=== PATIENT | male | born 1985 | race Caucasian/White ===

== ENCOUNTER 2020-04-12 15:22 | Observation (INO) | payer OTHER, SELFPAY ==
[2020-04-12] VITALS (10 sets, daily range): BP systolic 125–161; BP diastolic 65–103; PULSE 111–148; RESP 20–27; TEMP 37.7–39.2; O2SAT 98–100; BMI 38.7
--- NOTE | ~2020-04-12 | XR_ITS ---
XR chest 1V portable DATE: 04/12/2020 16:02 INDICATION: Cough, fever, shortness of breath TECHNIQUE: Portable upright AP chest on 04/12/2020 at 1602 hours COMPARISON: None FINDINGS: Normal heart size. No hilar or mediastinal enlargement. No pulmonary infiltrate or consolid ation, pleural effusion or pulmonary vascular congestion or pneumothorax. IMPRESSION: No active cardiopulmonary disease Reviewed, dictated and finalized at location A.
--- NOTE | 2020-04-12 15:32 | ED.FEVER ---
HPI - Fever General Chief Complaint: Fever Stated Complaint: from [facility]/fever/achey/sob Time Seen by Provider: 04/12/20 15:28 History of Present Illness HPI Narrative: Presents by private vehicle from urgent care for fever. He reports feeling bad since walking up this morning. He has cough, congestion, [place], and chills. This started while driving back from [place]. He stopped at urgent care and he was found to have a febrile to 102 and significantly tachycardic. He does report mild nausea. He has a h/o untreated htn and DM. He says that he has been taking social distancing measures, but unsure if he could have been exposed to anyone with COVID-19. Related Data Home Medications Medication Instructions Recorded Confirmed No Home Medications 04/12/20 04/12/20 Allergies Allergy/AdvReac Type Severity Reaction Status Date / Time No Known Allergies Allergy Verified 04/12/20 15:31 Review of Systems Review of Systems: All systems reviewed & are unremarkable except as noted in HPI and below Constitutional: Constitutional: Reports fever(s) ENT: Denies sore throat Cardiovascular: Cardiovascular: Denies chest pain Respiratory: Respiratory: Reports cough and Reports dyspnea Gastrointestinal: Gastrointestinal: Denies abdominal pain, Denies diarrhea, Reports nausea and Denies vomiting Genitourinary: Genitourinary: Denies hematuria and Denies dysuria Neurologic: Denies dizziness and Denies weakness PMFSH Past Medical History Medical History (Updated 04/12/20 @ 19:10 by Alexei Alonso MD) Diabetes mellitus HTN (hypertension) Social History Social History Gender identity (if verbalized by the patient): Male Exam Const: General: healthy appearing, no acute distress and alert Nutritional Appearance: well nourished Orientation/consciousness: patient oriented x3 HENMT: Head: normal to inspection Resp: Effort & Inspection: normal respiratory effort and tachypneic Auscultation: clear to auscultation bilaterally Cardio: Rate: tachycardic Rhythm: regular rhythm GI: GI Palp: Yes Soft to palpation and No Tenderness to palpation present (GI) Skin: General skin exam: normal color Neuro: General: patient oriented x3, moves all extremities and CN's II-XI intact bilaterally Speech: normal speech Extrem: General: normal to inspection Psych: Appearance: well kempt Mental Status: mental status grossly normal Affect: normal affect Attitude: cooperative Thought content: Yes Normal thought content present Course Vital Signs Vital signs: Vital Signs Temperature 39.1 C H 04/12/20 15:27 Pulse Rate 147 H 04/12/20 15:27 Respiratory Rate 22 H 04/12/20 15:27 Blood Pressure 157/99 H 04/12/20 15:27 Pulse Oximetry 100 04/12/20 15:27 Temperature 38.1 C H 04/12/20 18:49 Pulse Rate 124 H 04/12/20 18:49 Respiratory Rate 20 04/12/20 18:49 Blood Pressure 144/71 H 04/12/20 18:49 Pulse Oximetry 99 04/12/20 18:49 MDM - Fever MDM Narrative Medical decision making narrative: He does not appear that ill despite grossly normal vitals signs. Fever failed to respond to acetaminophen and still did not fully resolve with toradol. I have high suspicion for COVID-19. I will plan to admit for observation. Medical Records Attestation: I reviewed the patient's medical records. Lab Data Attestation: I reviewed the patient's lab results. Result diagrams: 04/12/20 15:53 04/12/20 15:53 Labs: Lab Results 04/12/20 04/12/20 04/12/20 Range/Units 15:48 15:53 15:53 WBC 16.0 H (4.5-10.0) K/mm3 RBC 5.38 (4.6-6.20) M/mm3 Hgb 16.6 (14.0-18.0) g/dL Hct 49.1 (42.0-52.0) % MCV 91.3 (80-100) fl MCH 30.9 (26-34) pg MCHC 33.8 (32-36) g/dl RDW 12.8 (11.5-14.5) % Plt Count 204 (150-375) k/mm3 MPV 11.4 H (7.4-10.4) fl Immature Gran % (Auto) 0.4 (0-0.5) % Neut % (Auto
[2020-04-12 15:50] LABS: Glucose Point of Care 123 (65-105)
[2020-04-12 16:03] LABS: Basophils Absolute Auto 0.1 K/mm3 (0.0-0.1); Basophils Percent Auto 0.4 % (0.2-1.2); Eosinophils Percent Auto 0.1 % (0-4.4); Hematocrit 49.1 % (42.0-52.0); Hemoglobin 16.6 g/dL (14.0-18.0); Immature Granulocyte Absolute 0.07 K/mm3 (0.00-0.031); Immature Granulocyte Percent A 0.4 % (0-0.5); Lymphocytes Absolute Auto 1.76 K/mm3 (0.9-3.2); Mean Corpuscular HGB Conc 33.8 g/dl (32-36); Mean Corpuscular Hemoglobin 30.9 pg (26-34); Mean Corpuscular Volume 91.3 fl (80-100); Mean Platelet Volume 11.4 fl (7.4-10.4); Monocytes Absolute Auto 1.1 K/mm3 (0.1-0.6); Neutrophils Percent Auto 81.1 % (45.5-73.1); Platelet Count Result 204 k/mm3 (150-375); Red Blood Count 5.38 M/mm3 (4.6-6.20); Red Cell Distribution Width 12.8 % (11.5-14.5)
[2020-04-12 16:14] LABS: Prothrombin Time 13.1 Seconds (11.1-14.7)
[2020-04-12 16:14] LABS: Lactic Acid Reflex 2.3 mmol/L (0.7-2.1)
[2020-04-12] MEDS: ACETAMINOPHEN 500 MG TABLET 1000 MG PO (16:14)
[2020-04-12] MEDS: SODIUM CHLORIDE 0.9% IV 1,000 ML 999 ML IV CONT ×2 (16:14→17:21)
[2020-04-12 16:15] LABS: Acetaminophen < 10 ug/mL (10-30)
[2020-04-12 16:16] LABS: Partial Thromboplastin Time 27.6 SECONDS (22.3-36.8)
[2020-04-12 16:18] LABS: Alanine Aminotransferase 72 U/L (4-50); Albumin Level 4.8 g/dL (3.5-5.1); Alkaline Phosphatase 81 U/L (38-126); Aspartate Amino Transferase 34 U/L (17-59); Bilirubin,Total 0.7 mg/dL (0.2-1.3); Blood Urea Nitrogen 10 mg/dL (9-20); CRP 2.6 mg/dL (<1.0); Calcium 9.1 mg/dL (8.4-10.2); Carbon Dioxide 28 mmol/L (22-30); Chloride 98 mmol/L (98-107); Estimated CRCL calculation 148 ml/min; Estimated Glomerular Filt Rate > 60; Glucose 130 mg/dL (75-110); Potassium 3.7 mmol/L (3.4-5.0); Sodium 136 mmol/L (137-145)
[2020-04-12 16:25] LABS: Add Urine Microscopic? NO; Appearance Urine Clear (Clear); Bilirubin Urine Negative (Negative); Blood Urine Negative (Negative); Color Urine Yellow (Yellow); Glucose Urine UA Negative (Negative); Ketones Urine Negative (Negative); Leukocyte Esterase Ur Negative LEU/UL (Negative); Nitrate Urine Negative (Negative); Protein Urine Negative (Negative); Specific Grav Ur 1.014 (1.001-1.035); Urobilinogen Urine Negative mg/dL (<2.0)
--- NOTE | 2020-04-12 17:12 | ECG_ITS ---
Measurements Intervals Hext Rate: 127 P: 44 GA: 170 QRS: -7 QRSD: 112 T: 20 QT: 294 QTc: 427 Interpretive Statements SINUS TACHYCARDIA INTRAVENTRICULAR CONDUCTION DELAY DELAYED PRECORDIAL R/S TRANSITION BORDERLINE T WAVE ABNORMALITY- INFERIOR LEADS ABNORMAL ECG Electronically Signed On 04-13-2020 7:01:00 CDT by Bryson Judge D.O.
[2020-04-12] MEDS: KETOROLAC 30 MG/ML VIAL (*BKC) IV PUSH (18:04)
[2020-04-12 19:01] LABS: Reflex Lactic Acid Yes or No Add Lactic
[2020-04-12 19:35] LABS: Lactic Acid 1.8 mmol/L (0.7-2.1)
--- NOTE | 2020-04-12 21:02 | ADMGEN ---
This patient, Allen Adams, was admitted to Intensive Care Unit-2. Patient/family oriented to hospital policies and general routines including ID bracelet, bed and alarms, visiting hours, pain management, procedures, bathroom and other care routines, personal items, smoking policy, room service/diet, and visiting hours. Valuables list has been completed. Information on how to activate the Rapid Response Team has been discussed. Patient/Family are encouraged to report perceived risks to care and to ask questions if they do not understand what they are told or what they should do.
--- NOTE | 2020-04-12 21:45 | PM.IMHP ---
H&P: HPI History of Present Illness Chief complaint: Sepsis, suspect COVID-19 Narrative: This is a 34 year old obese diabetic male who presented to the hospital from the urgent care secondary to fever, cough, congestion, chills, and body aches that started this morning. The patient developed his symptoms today and also has had subjective fever. Today he was driving home from [place], [place]. The patient was evaluated in the ER and found to meet critieria for sepsis with tachycardia, tachypnea and fever. He has been saturating 99-100% on room air and has not required any supplemental oxygen. Routine labs were obtained and demonstrated a leukocytosis of 16,000. Lactic acid was initially mildly elevated but normalized with IV fluid boluses in the ER. CXR was obtained in the ER and was unremarkable. EKG demonstrated Sinus tachycardia. He has had a fever while in the hospital tonight. He denies any known contacts with anyone who currently has COVID-19 virus. The patient was swabbed for COVID-19 and admitted to the hospital for observation. Review of Systems Review of Systems: All systems reviewed & are unremarkable except as noted in HPI and below PMFSH Past Medical History Medical History Diabetes mellitus HTN (hypertension) Surgical History Surgical History H/O knee surgery Family History Family History Father Heart attack Grandparent Hypertension Social History Social History Smoking status: Former smoker Tobacco type: cigarettes Second hand tobacco smoke exposure: Yes Alcohol intake: current Drinks per week: 1 Substance use: never Substance use type: does not use Gender identity (if verbalized by the patient): Male Spiritual care concerns: No Meds Home Medications and Allergies Home Medications Medication Instructions Recorded Confirmed Type No Home Medications 04/12/20 04/12/20 History Allergies Allergy/AdvReac Type Severity Reaction Status Date / Time No Known Allergies Allergy Verified 04/12/20 15:31 Vital Signs Vital Signs - 24 hr 04/12/20 15:27 04/12/20 15:41 04/12/20 17:22 Temperature 39.1 C H 39.2 C H Pulse Rate 147 H 148 H 131 H Respiratory Rate 22 H 22 H 27 H Blood Pressure 157/99 H 161/103 H 125/72 Pulse Oximetry 100 99 98 04/12/20 18:49 04/12/20 19:19 04/12/20 20:47 Temperature 38.1 C H 37.7 C H Pulse Rate 124 H 128 H 119 H Respiratory Rate 20 20 25 H Blood Pressure 144/71 H 131/65 147/70 H Pulse Oximetry 99 99 99 04/12/20 21:13 04/12/20 21:30 Temperature 37.8 C H 37.8 C H Pulse Rate 123 H Respiratory Rate 27 H Blood Pressure 131/81 Pulse Oximetry 98 Exam Const: General: cooperative, alert, awake, ill appearing and other (Febrile to touch++ ) Nutritional Appearance: obese morbidly obese Orientation/consciousness: patient oriented x3 HENMT: Head: normal to inspection General nose exam: Normal external nose present Face and sinus: normal facial exam Mouth: Yes Normal oral and palatal mucosa present and Yes oropharynx normal Eyes: Pupils: Equal, round and reactive pupils present EOM: EOMs intact bilaterally Neck: Neck: supple and no JVD Thyroid: thyroid normal Lymphatic: lymphadenopathy not noted Resp: Effort & Inspection: normal respiratory effort Auscultation: clear to auscultation bilaterally Cardio: Rate: tachycardic Rhythm: regular rhythm Heart sounds: no murmurs GI: Inspection: normal to inspection Auscultation: normal bowel sounds Skin: General skin exam: normal color and no rashes or lesions noted Neuro: General: patient oriented x3 Cranial nerves: Yes CN's II-XII intact bilaterally and Yes Equal, round and reactive pupils present Speech: normal speech Motor exam (neuro): 5/5 motor strength pre
[2020-04-12] MEDS: LACTATED RINGERS 1,000 ML 125 ML IV CONT (22:22)
[2020-04-12 22:48] LABS: Influenza Control Positive
[2020-04-13] VITALS (12 sets, daily range): BP systolic 125–133; BP diastolic 61–71; PULSE 100–128; RESP 15–28; TEMP 36.9–39.2; O2SAT 95–96
[2020-04-13] MEDS: LACTATED RINGERS 1,000 ML 125 ML IV CONT ×2 (05:35→16:24)
[2020-04-13 06:06] LABS: Basophils Absolute Auto 0.1 K/mm3 (0.0-0.1); Basophils Percent Auto 0.3 % (0.2-1.2); Hematocrit 41.4 % (42.0-52.0); Hemoglobin 14.1 g/dL (14.0-18.0); Immature Granulocyte Absolute 0.07 K/mm3 (0.00-0.031); Immature Granulocyte Percent A 0.5 % (0-0.5); Lymphocytes Absolute Auto 1.34 K/mm3 (0.9-3.2); Lymphocytes Percent Auto 9.4 % (18.3-44.2); Mean Corpuscular HGB Conc 34.1 g/dl (32-36); Mean Platelet Volume 11.2 fl (7.4-10.4); Monocytes Absolute Auto 1.2 K/mm3 (0.1-0.6); Monocytes Percent Auto 8.3 % (2.6-8.5); Neutrophils Absolute Auto 11.7 K/mm3 (1.3-6.7); Neutrophils Percent Auto 81.5 % (45.5-73.1); Platelet Count Result 151 k/mm3 (150-375); Red Blood Count 4.55 M/mm3 (4.6-6.20); Red Cell Distribution Width 12.9 % (11.5-14.5); White Blood Count 14.3 K/mm3 (4.5-10.0)
[2020-04-13 06:17] LABS: Blood Urea Nitrogen 12 mg/dL (9-20); Calcium 8.2 mg/dL (8.4-10.2); Carbon Dioxide 25 mmol/L (22-30); Chloride 103 mmol/L (98-107); Estimated CRCL calculation 162 ml/min; Estimated Glomerular Filt Rate > 60; Glucose 169 mg/dL (75-110); Magnesium 1.7 mg/dL (1.6-2.3); Potassium 3.8 mmol/L (3.4-5.0); Sodium 135 mmol/L (137-145)
[2020-04-13] MEDS: ALBUTEROL SULFATE (*SP) AEROSOL 1 PUFF 2 PUFF INHALATION ×3 (08:50→19:40)
[2020-04-13 12:56] LABS: SARS-CoV-2 RNA PCR Negative
[2020-04-13 13:57] LABS: Glucose Point of Care 108 (65-105)
[2020-04-13] MEDS: ACETAMINOPHEN 325 MG TABLET 650 MG PO (15:02)
--- NOTE | 2020-04-13 15:09 | PC.NURSE ---
This patient, Allen Adams, was received from [ ICU/2] on 04/13/20 at 1507. Personal belongings list checked and signed. Patient/family oriented to unit policies and routines
--- NOTE | 2020-04-13 15:10 | PC.NURSE ---
Pt transfered to 254 via wheelchair. No issues noted. Belonging checked and all items sent with patient. Report given to REINALDO Wong @ [phone]
[2020-04-13 16:30] LABS: Glucose Point of Care 128 (65-105)
--- NOTE | 2020-04-13 16:39 | PM.IMPN ---
Progress Note: A&P Assessment and Plan (1) Suspected 2019 novel coronavirus infection: Code(s): Z20.828 - Contact with and (suspected) exposure to other viral communicable diseases Status: Ruled-out Assessment and Plan: COVID is NEGATIVE (2) Sinus tachycardia: Code(s): R00.0 - Tachycardia, unspecified Status: Acute Assessment and Plan: Ongoing fevers. Continue antipyretics and IV fluids. (3) Sepsis: Qualifiers: Sepsis acute organ dysfunction status: without acute organ dysfunction Sepsis type: sepsis due to unspecified organism Qualified Code(s): A41.9 - Sepsis, unspecified organism Code(s): A41.9 - Sepsis, unspecified organism Status: Acute Assessment and Plan: w/ fever, tachycardia, and leukocytosis. viral or mild chest infection will cover with oral ABX. Covid is negative flu is negative hopeful discharge once fever settles (4) Diabetes mellitus: Qualifiers: Diabetes mellitus type: type 2 Diabetes mellitus custodial insulin use: without manager intermediate use Diabetes mellitus complication status: without complication Qualified Code(s): E11.9 - Type 2 diabetes mellitus without complications Code(s): E11.9 - Type 2 diabetes mellitus without complications Status: Chronic Assessment and Plan: Untreated. Accuchecks, SSI coverage, hypoglycemic protocol. (5) HTN (hypertension): Qualifiers: Hypertension type: unspecified Qualified Code(s): I10 - Essential (primary) hypertension Code(s): I10 - Essential (primary) hypertension Status: Chronic Assessment and Plan: Monitor blood pressure. Subjective Date/time seen: 04/13/20 16:39 Interval history: 34 year old obese diabetic male who presented to the hospital from the urgent care secondary to fever, cough, congestion, chills, and body aches that started this morning. Complains of body aches and fever and chills. CXR is negative, Covid is negative, discussed possible sinuses and chest infection with the patient or viral like illnesses. Review of Systems Review of Systems: All systems reviewed & are unremarkable except as noted in HPI and below Constitutional: Constitutional: Reports as per HPI, Reports body ache(s) and Reports chills Cardiovascular: Cardiovascular: Reports as per HPI Comments: Tacycardic Respiratory: Respiratory: Reports as per HPI Exam Const: General: cooperative, alert, awake, ill appearing and other (Febrile to touch++ ) Nutritional Appearance: obese morbidly obese Orientation/consciousness: patient oriented x3 Cardio: Rate: tachycardic Rhythm: regular rhythm Heart sounds: no murmurs Extrem: General: normal to inspection and no edema Psych: Mental Status: mental status grossly normal Affect: normal affect Objective Data Vital Signs Vital Signs: Vital Signs - 24 hr 04/12/20 17:22 04/12/20 18:49 04/12/20 19:19 Temperature 39.2 C H 38.1 C H Pulse Rate 131 H 124 H 128 H Respiratory Rate 27 H 20 20 Blood Pressure 125/72 144/71 H 131/65 Pulse Oximetry 98 99 99 04/12/20 20:47 04/12/20 21:13 04/12/20 21:30 Temperature 37.7 C H 37.8 C H 37.8 C H Pulse Rate 119 H 123 H Respiratory Rate 25 H 27 H Blood Pressure 147/70 H 131/81 Pulse Oximetry 99 98 04/12/20 22:00 04/12/20 22:20 04/13/20 00:00 Temperature 38.5 C H 37.5 C Pulse Rate 111 H 108 H Respiratory Rate 23 H Blood Pressure 125/61 Pulse Oximetry 96 04/13/20 02:00 04/13/20 04:00 04/13/20 05:49 Temperature 38.5 C H 38.5 C H Pulse Rate 111 H 128 H Respiratory Rate 28 H Blood Pressure 132/71 Pulse Oximetry 95 04/13/20 06:00 04/13/20 08:00 04/13/20 08:18 Temperature 36.9 C 36.9 C Pulse Rate 113 H 101 H Respiratory Rate 20 Blood Pressure 133/64 Pulse Oximetry 95 04/13/20 10:00 04/13/20 15:02 04/13/20 16:02 Temperature 39.2 C H 37.9 C H Pulse Rate 111 H Respiratory Rate Blood Pressure
[2020-04-13] MEDS: AZITHROMYCIN 250 MG TABLET 500 MG PO (21:38)
[2020-04-14] VITALS: BP 136/84; PULSE 110; RESP 20; TEMP 36.3; O2SAT 99
[2020-04-14 01:08] LABS: Glucose Point of Care 127 (65-105)
[2020-04-14 02:39] VITALS: RESP 14
[2020-04-14 08:00] LABS: Glucose Point of Care 123 (65-105)
[2020-04-14] MEDS: ALBUTEROL SULFATE (*SP) AEROSOL 1 PUFF 2 PUFF INHALATION ×2 (08:03→12:28)
[2020-04-14] MEDS: LACTATED RINGERS 1,000 ML 125 ML IV CONT ×2 (08:14)
[2020-04-14] MEDS: AZITHROMYCIN 250 MG TABLET 500 MG PO (08:14)
[2020-04-14 11:43] VITALS: BP 135/85; PULSE 111; RESP 18; TEMP 37.3; O2SAT 97
[2020-04-14 12:11] LABS: Glucose Point of Care 102 (65-105)
--- NOTE | 2020-04-14 13:18 | PM.IMPN ---
Progress Note: A&P Assessment and Plan (1) Sepsis: Qualifiers: Sepsis acute organ dysfunction status: without acute organ dysfunction Sepsis type: sepsis due to unspecified organism Qualified Code(s): A41.9 - Sepsis, unspecified organism Code(s): A41.9 - Sepsis, unspecified organism Status: Acute Assessment and Plan: Criteria met on admission. Result of viral illness. No further fever. Blood cultures remain negative. COVID-19 testing negative. Will obtain urine for Legionella due to patient request but reassessed this is not likely. Will discharge today after collecting urine specimen. (2) Viral illness: Code(s): B34.9 - Viral infection, unspecified Status: Acute Assessment and Plan: Symptomatology consistent with viral illness at this point. COVID-19 testing is negative. Fever has resolved. Symptomatically improved. Chest x-ray clear on admission. (3) Suspected 2019 novel coronavirus infection: Code(s): Z20.828 - Contact with and (suspected) exposure to other viral communicable diseases Status: Ruled-out Assessment and Plan: COVID-19 testing negative. (4) Sinus tachycardia: Code(s): R00.0 - Tachycardia, unspecified Status: Acute Assessment and Plan: Result of infection. Now resolved. (5) Diabetes mellitus: Qualifiers: Diabetes mellitus complication status: without complication Diabetes mellitus intermediate card tender insulin use: without intermediate card tender use Diabetes mellitus type: type 2 Qualified Code(s): E11.9 - Type 2 diabetes mellitus without complications Code(s): E11.9 - Type 2 diabetes mellitus without complications Status: Chronic Assessment and Plan: Not on medication at home. Glucose reviewed on 04/14/2020 and currently in acceptable range. Continue diabetic diet. Will need to continue to follow as an outpatient. (6) HTN (hypertension): Qualifiers: Hypertension type: unspecified Qualified Code(s): I10 - Essential (primary) hypertension Code(s): I10 - Essential (primary) hypertension Status: Chronic Assessment and Plan: Not on medication at home. Blood pressure reviewed on 04/14/2020 and now in acceptable range with occasional elevated reading. Was significantly elevated on admission. Will need to continue to follow as an outpatient. (7) DVT prophylaxis: Code(s): Z29.9 - Encounter for prophylactic measures, unspecified Status: Acute Assessment and Plan: SCDs. Time Spent With Patient Time with patient: 15 - 25 minutes Subjective Date/time seen: 04/14/20 13:18 Interval history: Date of Service: 04/14/2020. Admitted with sepsis, sinus tachycardia, suspected viral illness. Does feel better today. Recently in hot tub and would like to check for Legionella. No shortness of breath. Only coughs after nebulizer treatment. No chest pain. No abdominal pain. No further fever. Would like to go home. Review of Systems Review of Systems: Narrative: Feeling better. Would like to go home. Constitutional: Constitutional: Denies chills and Denies fever(s) ENT: Denies dysphagia Cardiovascular: Cardiovascular: Denies chest pain Respiratory: Respiratory: Reports cough (Only after nebulizer treatment) and Denies dyspnea Gastrointestinal: Gastrointestinal: Denies abdominal pain, Denies nausea and Denies vomiting Genitourinary: Genitourinary: Reports no additional male genitourinary complaints Musculoskeletal: Musculoskeletal: Reports no additional musculoskeletal complaints Integumentary/Breasts: Skin/Breast: Denies rash Neurologic: Denies headache(s) Psychiatric: Psychiatric: Denies confusion Exam Narrative: Exam Narrative: Awake and alert. Const: General: no acute distress HENMT: Mouth: Yes moist mucous membranes Neck: Neck: supple Lymphatic: lymphadenopathy not noted Resp: Auscultation: clear to auscultation bilaterally, no rale
[2020-04-14 14:00] VITALS: BP 148/94; PULSE 118; RESP 17; TEMP 36.8; O2SAT 95
--- NOTE | 2020-04-14 17:05 | PM.DS ---
DS: Admitting Diagnosis Admitting Diagnosis Admitting Diagnosis: Contact with and (suspected) exposure to other viral communicable diseases DS: Discharge Diagnosis Discharge Diagnosis (1) Sepsis: Qualifiers: Sepsis acute organ dysfunction status: without acute organ dysfunction Sepsis type: sepsis due to unspecified organism Qualified Code(s): A41.9 - Sepsis, unspecified organism Code(s): A41.9 - Sepsis, unspecified organism Status: Acute (2) Viral illness: Code(s): B34.9 - Viral infection, unspecified Status: Acute (3) Sinus tachycardia: Code(s): R00.0 - Tachycardia, unspecified Status: Acute (4) Diabetes mellitus: Qualifiers: Diabetes mellitus complication status: without complication Diabetes mellitus intermediate insulin use: without intermediate use Diabetes mellitus type: type 2 Qualified Code(s): E11.9 - Type 2 diabetes mellitus without complications Code(s): E11.9 - Type 2 diabetes mellitus without complications Status: Chronic (5) HTN (hypertension): Qualifiers: Hypertension type: unspecified Qualified Code(s): I10 - Essential (primary) hypertension Code(s): I10 - Essential (primary) hypertension Status: Chronic (6) COVID-19 ruled out: Code(s): Z03.818 - Encounter for observation for suspected exposure to other biological agents ruled out Status: Acute DS: Summary Hospital Course Reason for hospitalization: Fever, cough, congestion, chills and body aches. Hospital Course: Date of Service of Discharge: April 14, 2020. History of Present Illness: Patient is a 34-year-old gentleman with known diabetes present to the urgent care initially with fever, cough, congestion, chills and body aches starting on the morning of presentation. Patient also reports having subjective fever. He reports he was driving home from [place], [place]. He was subsequently sent to the emergency room and found to meet criteria for sepsis with tachycardia, tachypnea and fever. No recent nausea or vomiting. No abdominal pain. No chest pain or shortness of breath. He was also noted to have elevated WBC and sinus tachycardia. Given all of his symptoms, COVID-19 testing was initiated. Decision was made for placement in observation for further evaluation and treatment. Course in Hospital: Patient was initially placed in the IMU but quickly transferred to the medical floor where he remained for the duration of his stay. He was started on IV fluids after receiving IV fluid boluses in the emergency room. COVID-19 testing was initiated and returned as negative with isolation subsequently discontinued. Patient quickly improved with symptomatic treatment. Chest x-ray had been negative on admission but with patient's concern for possible bacterial infection, azithromycin orally was started. Patient did not require oxygen throughout his stay. Lungs were clear by the time of discharge. He had no nausea, vomiting or abdominal pain during his stay. Patient did become concerned about the possibility of Legionella infection as he had been in a hot tub recently. Patient was advised this was unlikely in his case but urine specimen was taken for Legionella antigen per his request. He was noted to have mild elevation of his glucose attend not require any insulin although sliding scale insulin was available. He was maintained on a diabetic diet. Blood pressure was noted to be significantly elevated on admission but did improve with rehydration. Blood pressure still with mild elevation at discharge with outpatient on medication. He did not require IV medication to help with blood pressure on the day of discharge. Initial sinus tachycardia also resolved with fluid resuscitation. Blood cultures were initiated on presentation. These were still negative by the time of discharge. Patient had no other acute symptoms while in hospital. With the patient improved
[2020-04-17 15:23] LABS: Legionella pneumophila Ag Ur Not Detected (Not Detected)
== END 2020-04-14 14:38 | disposition home or self-care (01) ==
LOC: ANHED 19:22 → ANHICU 04-13 01:42 → ANH2MED 04-13 15:50 → ANHICU 04-17 13:12
PROVIDERS: Family Medicine; Admitting Provider Family Medicine; Emergency Provider Emergency Medicine; Visit Provider Hospitalist
DX: A41.9 Sepsis, unspecified organism (principal); B34.9 Viral infection, unspecified; Z03.818 Encounter for observation for suspected exposure to other biological agents ruled out; E11.9 Type 2 diabetes mellitus without complications; I10 Essential (primary) hypertension; Z87.891 Personal history of nicotine dependence
CPT/HCPCS: 36415; 71045; 80048; 80053; 80307; 81003; 82948; 83605; 83735; 85025; 85610; 85730; 86140; 87040; 87449; 87635; 87804; 93005; 94640; 96360; 96361; 96365; 96374; 96375; 99285; A9270; C9803; G0378; J0131; J1885; J7030; J7120; U0003